=== PATIENT | female | born 1960 | race Caucasian/White ===

== ENCOUNTER 2019-04-10 07:43 | Outpatient (CLI) | payer BC, OTHER ==
--- NOTE | 2019-04-10 08:20 | CT ---
CT ABDOMEN AND PELVIS WITH ORAL AND IV CONTRAST: HISTORY: Abdominal pain FINDINGS: The lung bases are clear. No calcified gallstones are seen. The liver, spleen, pancreas, adrenal glan ds and right kidney are normal. A small cyst is seen in the left kidney. No free air, free fluid or lymphadenopathy is seen in the abdomen or pelvis. The small bowel loops ar e not abnormally dilated. A normal-appearing appendix is seen. There is sigmoid diverticulosis without evidence of diverticulitis. There are vascular calcifications without evidence of aneurysmal dilatation of the abdominal aorta. M ild degenerative changes are seen in the spine. No osteolytic or osteoblastic lesions are identified. IMPRESSION: 1. Small left renal cyst 2. Sigmoid diverticulosis
== END 2019-04-10 07:44 | disposition home or self-care (01) ==
LOC: BICCT 07:43
PROVIDERS: ATTEND Obstetrics & Gynecology
DX: R10.84 Generalized abdominal pain (principal); R14.0 Abdominal distension (gaseous); N28.1 Cyst of kidney, acquired; K57.30 Diverticulosis of large intestine without perforation or abscess without bleeding
CPT/HCPCS: 74177

== ENCOUNTER 2023-07-11 14:26 | Outpatient (CLI) | payer BC ==
[2023-07-11 15:25] LABS: Bilirubin Neg (Negative); Blood, Urine Negative (Negative); Clarity Clear (Clear); Glucose, Urine (Dipstick) Normal (Negative); Ketone, Urine Negative (Negative); Leukocyte 25 (Negative); Nitrite Negative (Negative); Protein, Urine (Dipstick) Negative (Neg-Trace); Specific Gravity, Urine 1.015 (1.005-1.030); Urobilinogen Normal mg/dL (Less than 2)
[2023-07-11 16:55] LABS: #Basophils 0.1 10x3/uL (0.0-0.2); #Eosinphils 0.1 10x3/uL (0.0-0.5); #Monocytes 0.6 10x3/uL (0.0-1.1); #Neutrophils 4.6 10x3/uL (1.5-8.4); %Basophils 0.7 % (0.0-2.0); %Eosinophils 1.8 % (0.0-6.0); %Lymphocytes 29.8 % (18.0-47.0); %Monocytes 7.5 % (0.0-10.0); %Neutrophils 60.1 % (40.0-75.0); Hematocrit 38.3 % (34.9-44.5); Hemoglobin 12.4 g/dL (12.0-15.5); Mean Corpuscular HGB CONC 32.4 g/dL (32.0-36.0); Mean Corpuscular Hemoglobin 30.8 pg (27.0-33.0); Mean Platelet Volume 9.8 fl (7.4-10.4); Platelet Count 265 10x3/uL (150-450); RBC Distribution Width 13.2 % (11.5-14.5); Red Blood Cell (RBC) Count 4.03 10x6/uL (3.90-5.03); White Blood Cell (WBC) Count 7.6 10x3/uL (3.5-10.5)
[2023-07-11 16:59] LABS: INR-International Normal Ratio 0.9; Prothrombin Time 9.8 sec (9.5-12.1)
[2023-07-11 17:02] LABS: Anion Gap 14 mmol/L (10-20); BUN (Urea Nitrogen) 12 mg/dL (9.8-20.1); Calc. Creatinine Clearance 0 mL/min (70-130); Calcium 8.5 mg/dL (7.8-10.44); Carbon Dioxide 22 mmol/L (23-31); Chloride 109 mmol/L (98-107); Estimated GFR 91; Glucose 103 mg/dL (80-115); Potassium 3.7 mmol/L (3.5-5.1); Sodium 141 mmol/L (136-145)
== END 2023-07-11 14:27 | disposition home or self-care (01) ==
LOC: LABBT 14:26
PROVIDERS: ATTEND Orthopaedic Surgery
DX: Z01.818 Encounter for other preprocedural examination (principal); M17.0 Bilateral primary osteoarthritis of knee
CPT/HCPCS: 71046; 80048; 81003; 85025; 85610; 86850; 86900; 86901; 87081

== ENCOUNTER 2023-07-16 05:30 | Observation (INO) | payer BC ==
[2023-07-11 15:01] VITALS: BMI 29.6
[2023-07-16] MEDS ORDERED: Sodium Chloride 0.9% 100 ML ONE ×2 (06:07→06:52)
[2023-07-16] MEDS ORDERED: Tranexamic Acid 1,000 MG/10 ML VIAL ONE ×2 (06:07→09:21)
[2023-07-16] MEDS ORDERED: Vancomycin 1 GM/200 ML (FROZEN) BAG ONE (06:07)
[2023-07-16] MEDS ORDERED: Midazolam HCl 2 mg/2 ml Vial ONE (06:24)
[2023-07-16] MEDS ORDERED: fentaNYL 50 mcg/mL 1 mL Vial ONE ×7 (06:24→15:17)
[2023-07-16] MEDS ORDERED: Lidocaine 1% (PF) 30 ML VIAL ONE ×2 (06:27→08:05)
[2023-07-16] MEDS ORDERED: methylPREDNISolone Acetate 40 mg/ml Vial ONE (06:27)
[2023-07-16] MEDS ORDERED: Bupivacaine PF 0.5% 30 ML VIAL ONE ×2 (06:27→08:05)
[2023-07-16] MEDS ORDERED: Ketorolac Tromethamine 30 MG (1 mL) VIAL ONE ×2 (06:32→13:49)
[2023-07-16] MEDS ORDERED: PROPOFOL 200 MG/20 ML VIAL ONE (06:32)
[2023-07-16] MEDS ORDERED: Ondansetron PF 4 MG/2 ML Vial ONE (06:32)
[2023-07-16] MEDS ORDERED: Lidocaine 1% PF 5 ML VIAL ONE (06:32)
[2023-07-16] MEDS ORDERED: ePHEDrine Sulfate 50 MG/10 ML VIAL ONE (06:32)
[2023-07-16] MEDS ORDERED: CEFAZOLIN 2 GM VIAL ONE ×2 (06:52→13:26)
[2023-07-16] MEDS ORDERED: Famotidine/PF 20 mg/2ml Vial ONE (07:13)
[2023-07-16] MEDS ORDERED: fentaNYL 50 mcg/mL 1 mL Vial SLOW IVP PRN (07:44)
[2023-07-16] MEDS ORDERED: Ropivacaine 0.2% 550 ML 550 ML NERVE BLCK SCH (07:45)
[2023-07-16] MEDS ORDERED: traMADol HCl 50 MG TAB PO PRN (07:45)
[2023-07-16] MEDS ORDERED: Promethazine HCl 25 MG/ML VIAL IM PRN ×3 (07:45→08:53)
[2023-07-16] MEDS ORDERED: Ondansetron PF 4 MG/2 ML Vial IVP PRN ×2 (07:45→08:53)
[2023-07-16] MEDS ORDERED: Zolpidem Tartrate 5 MG TAB PO PRN ×2 (07:45→08:53)
[2023-07-16] MEDS ORDERED: Ondansetron HCl/PF 4 MG/2 ML Vial IVP PRN (08:02)
[2023-07-16] MEDS ORDERED: HYDROmorphone 2 MG/ML VIAL SLOW IVP PRN (08:02)
[2023-07-16] MEDS ORDERED: Meperidine HCl/PF 25 MG/ML VIAL SLOW IVP PRN (08:02)
[2023-07-16] MEDS ORDERED: EPINEPHrine 1 MG/ML AMP ONE (08:05)
[2023-07-16] MEDS ORDERED: Acetaminophen 325 MG TAB PO PRN (08:53)
[2023-07-16] MEDS ORDERED: diphenhydrAMINE 25 MG CAP PO PRN (08:53)
[2023-07-16] MEDS ORDERED: Non-Formulary Item 1 EACH (Potassium Gluconate [Potassium Gluconate] 99 MG Tablet) PO SCH (09:00)
[2023-07-16] MEDS ORDERED: Non-Formulary Item 1 EACH (Fluoxetine Hcl [Prozac] 40 MG Capsule) PO SCH (09:00)
[2023-07-16] MEDS ORDERED: Tranexamic Acid 1,000 MG in Sodium Chloride 0.9% 100 ML IVPB SCH (09:00)
[2023-07-16] MEDS ORDERED: Ferrous Gluconate 324 MG TAB PO SCH (09:00)
[2023-07-16] MEDS ORDERED: Non-Formulary Item 1 EACH (Magnesium Oxide [Magnesium] 400 MG Tablet) PO SCH (09:00)
[2023-07-16] MEDS ORDERED: Non-Formulary Item 1 EACH (Multivit-Minerals/Folic/Ginkgo [One Daily For Women 50+ Adv] 1 PO SCH (09:00)
[2023-07-16] MEDS ORDERED: Non-Formulary Item 1 EACH (Celecoxib [Celecoxib] 200 MG Capsule) PO SCH (09:00)
[2023-07-16] MEDS: CEFAZOLIN 2 GM in Sodium Chloride 0.9% 100 ML IVPB SCH ×2 (13:38→22:50)
[2023-07-16] MEDS: Ketorolac Tromethamine 30 MG (1 mL) VIAL IVP SCH ×2 (13:49→18:33)
[2023-07-16] MEDS: Sucralfate 1 GM/10 ML UDCUP PO SCH (17:00)
[2023-07-16] MEDS: Multivitamin W/ Minerals 1 TAB PO SCH (17:09)
[2023-07-16] MEDS: Aspirin 81 mg Enteric Coated Tablet PO SCH ×2 (17:09→20:52)
[2023-07-16] MEDS: Ferrous Sulfate 325 MG TAB PO SCH (17:09)
[2023-07-16] MEDS: Senokot S 8.6-50 MG TAB PO SCH ×2 (17:10→20:52)
[2023-07-16] MEDS: Polyethylene Glycol 3350 17 GM Packet PO SCH (17:10)
[2023-07-16] MEDS: Sodium Chloride 0.9% 1,000 ML IV SCH ×2 (17:12→18:36)
[2023-07-16] MEDS ORDERED: Vancomycin 1.5 GM in Sodium Chloride 0.9% 250 ML 300 ML IVPB SCH (18:00)
[2023-07-16] MEDS ORDERED: Vancomycin (BATCH) 1.5 GM in Premix 1 BAG IVPB SCH (18:45)
[2023-07-16] MEDS: traMADol HCl 50 MG TAB PO PRN (20:50)
[2023-07-16] MEDS: rOPINIRole HCl 1 MG TAB PO SCH (20:52)
[2023-07-16] MEDS: QUEtiapine 25 MG TAB PO SCH (20:52)
[2023-07-16] MEDS ORDERED: rOPINIRole HCl 2 MG TAB PO SCH (21:00)
[2023-07-16] MEDS ORDERED: Non-Formulary Item 1 EACH (Quetiapine Fumarate [Seroquel] 50 MG Tablet) PO SCH (21:00)
[2023-07-17] MEDS: Ketorolac Tromethamine 30 MG (1 mL) VIAL IVP SCH ×5 (00:37→16:19)
[2023-07-17 05:41] LABS: Hematocrit 31.2 % (36.0-47.0); Hemoglobin 9.9 g/dL (12.0-16.0); Mean Corpuscular HGB CONC 31.7 g/dL (32.0-36.0); Mean Corpuscular Hemoglobin 31.5 pg (27.0-31.0); Mean Corpuscular Volume 99.4 fl (78.0-98.0); Mean Platelet Volume 9.6 fL (7.4-10.4); Platelet Count 221 10x3/uL (130-400); RBC Distribution Width 13.2 % (11.5-14.5); Red Blood Cell (RBC) Count 3.14 mill/uL (4.20-5.40); White Blood Cell (WBC) Count 10.7 10x3/uL (4.8-10.8)
[2023-07-17] MEDS: Sodium Chloride 0.9% 1,000 ML IV SCH ×2 (06:06→15:17)
[2023-07-17] MEDS: Sucralfate 1 GM/10 ML UDCUP PO SCH (09:04)
[2023-07-17] MEDS: Magnesium Oxide 400 MG TAB PO SCH (09:04)
[2023-07-17] MEDS: FLUoxetine HCl 20 MG CAP PO SCH ×2 (09:04→18:28)
[2023-07-17] MEDS: Ferrous Sulfate 325 MG TAB PO SCH (09:04)
[2023-07-17] MEDS: Multivitamin W/ Minerals 1 TAB PO SCH (09:04)
[2023-07-17] MEDS: Aspirin 81 mg Enteric Coated Tablet PO SCH ×2 (09:04→19:50)
[2023-07-17] MEDS: Polyethylene Glycol 3350 17 GM Packet PO SCH (09:04)
[2023-07-17] MEDS: Senokot S 8.6-50 MG TAB PO SCH ×2 (09:04→19:51)
[2023-07-17] MEDS: HYDROcodone/Acetaminophen 10/325 mg Tablet PO PRN ×3 (09:09→19:51)
[2023-07-17] MEDS: Potassium Chloride 8 MEQ TAB PO SCH (10:05)
[2023-07-17] MEDS: rOPINIRole HCl 1 MG TAB PO SCH (19:51)
[2023-07-17] MEDS: QUEtiapine 25 MG TAB PO SCH (19:51)
[2023-07-17] MEDS ORDERED: FLUoxetine HCl 20 MG CAP PO SCH (21:00)
[2023-07-18] MEDS: Ketorolac Tromethamine 30 MG (1 mL) VIAL IVP SCH ×2 (00:48→06:00)
[2023-07-18] MEDS: Sodium Chloride 0.9% 1,000 ML IV SCH ×2 (01:37→13:03)
[2023-07-18] MEDS: HYDROcodone/Acetaminophen 10/325 mg Tablet PO PRN ×2 (02:57→10:01)
[2023-07-18 06:03] LABS: Hematocrit 31.7 % (36.0-47.0); Mean Corpuscular HGB CONC 31.5 g/dL (32.0-36.0); Mean Corpuscular Hemoglobin 31.5 pg (27.0-31.0); Mean Platelet Volume 9.9 fL (7.4-10.4); Platelet Count 217 10x3/uL (130-400); RBC Distribution Width 13.3 % (11.5-14.5); Red Blood Cell (RBC) Count 3.17 mill/uL (4.20-5.40); White Blood Cell (WBC) Count 9.4 10x3/uL (4.8-10.8)
[2023-07-18 09:45] VITALS: BP 125/64; TEMP 98.5
[2023-07-18] MEDS: Multivitamin W/ Minerals 1 TAB PO SCH (10:00)
[2023-07-18] MEDS: Senokot S 8.6-50 MG TAB PO SCH (10:00)
[2023-07-18] MEDS: Polyethylene Glycol 3350 17 GM Packet PO SCH (10:00)
[2023-07-18] MEDS: Aspirin 81 mg Enteric Coated Tablet PO SCH (10:00)
[2023-07-18] MEDS: Sucralfate 1 GM/10 ML UDCUP PO SCH (10:00)
[2023-07-18] MEDS: Ferrous Sulfate 325 MG TAB PO SCH (10:01)
[2023-07-18] MEDS: Magnesium Oxide 400 MG TAB PO SCH (10:01)
[2023-07-18] MEDS: Potassium Chloride 8 MEQ TAB PO SCH (13:02)
[2023-07-18] MEDS: traMADol HCl 50 MG TAB PO PRN (13:19)
[2023-07-19] MEDS ORDERED: CeleCOXIB 100 MG CAP PO SCH (09:00)
== END 2023-07-18 14:20 | disposition home or self-care (01) ==
LOC: SDC 05:30 → SURG B 16:11
PROVIDERS: ADMIT Orthopaedic Surgery; ATTEND Orthopaedic Surgery
PROC: 0SRD0JZ Replacement of Left Knee Joint with Synthetic Substitute, Open Approach (ICD-10-PCS; principal; 2023-07-16)
PROC: 3E0U3GC Introduction of Other Therapeutic Substance into Joints, Percutaneous Approach (ICD-10-PCS; 2023-07-16)
DX: M17.0 Bilateral primary osteoarthritis of knee (principal)
CPT/HCPCS: 36415; 85027; A4306; C1776; J0171; J1030; J1885; J2001; J2250; J2405; J2704; J2795; J3010; J3370; J3370-JW; J3490; J7050; S0020; S0028